=== PATIENT | female | born 1975 | race Caucasian/White ===

== ENCOUNTER 2019-02-18 14:37 | Emergency (ER) | payer OTHER, SELFPAY ==
--- NOTE | 2019-02-18 15:22 | EDPHYS ---
Physician Documentation [facility] Name: Liss Coles Age: 43 yrs Sex: Female : 1975 Arrival Date: 02/18/2019 Time: 14:41 Bed 14 Private MD: ED Physician Haresh Garg HPI: 02/18 15:20 This 43 yrs old Female presents to ER via Ambulatory with complaints of Fall pm1 Injury. 15:20 Details of fall: The patient fell from an upright position, while walking. Onset: The pm1 symptoms/episode began/occurred today. Associated injuries: The patient sustained right hamstring. Severity of symptoms: in the emergency department the symptoms are unchanged. The patient has not experienced similar symptoms in the past. The patient has not recently seen a physician. Patient was walking into a room at work and did not know that the floor was just mopped. Patient right leg slide forward and she did a split. Patient presenting with pain to right hamstring area. no head injury or headache. [employer]OR [employer]ING: 14:50 LMP N/A - Irregular menses rb1 Historical: - Allergies: 14:50 No Known Allergies; rb1 - Home Meds: 14:50 None [Active]; rb1 - PMHx: 14:50 None; rb1 - PSHx: 14:50 None; rb1 - Immunization history: Last tetanus immunization: < 10 years ago. - Social history:: Smoking status: Patient/guardian denies using tobacco. - Ebola Screening: : Patient negative for fever greater than or equal to 101.5 degrees Fahrenheit, and additional compatible Ebola Virus Disease symptoms. ROS: 15:20 Constitutional: Negative for fever, chills, and weight loss, Eyes: Negative for injury, pm1 pain, redness, and discharge, ENT: Negative for injury, pain, and discharge, Neck: Negative for injury, pain, and swelling, Cardiovascular: Negative for chest pain, palpitations, and edema, Respiratory: Negative for shortness of breath, cough, wheezing, and pleuritic chest pain, Abdomen/GI: Negative for abdominal pain, nausea, vomiting, diarrhea, and constipation, Back: Negative for injury and pain, : Negative for injury, bleeding, discharge, and swelling. 15:20 Skin: Negative for injury, rash, and discoloration, Neuro: Negative for headache, weakness, numbness, tingling, and seizure. 15:20 MS/extremity: Positive for pain, of the right hamstring, Negative for decreased range of motion, deformity. Exam: 15:20 Constitutional: This is a well developed, well nourished patient who is awake, alert, pm1 and in no acute distress. Head/Face: Normocephalic, atraumatic. Eyes: Pupils equal round and reactive to light, extra-ocular motions intact. Lids and lashes normal. Conjunctiva and sclera are non-icteric and not injected. Cornea within normal limits. Periorbital areas with no swelling, redness, or edema. ENT: Nares patent. No nasal discharge, no septal abnormalities noted. Tympanic membranes are normal and external auditory canals are clear. Oropharynx with no redness, swelling, or masses, exudates, or evidence of obstruction, uvula midline. Mucous membranes moist. Neck: Trachea midline, no thyromegaly or masses palpated, and no cervical lymphadenopathy. Supple, full range of motion without nuchal rigidity, or vertebral point tenderness. No Meningismus. Chest/axilla: Normal chest wall appearance and motion. Nontender with no deformity. No lesions are appreciated. Cardiovascular: Regular rate and rhythm with a normal S1 and S2. No gallops, murmurs, or rubs. Normal PMI, no JVD. No pulse deficits. Respiratory: Lungs have equal breath sounds bilaterally, clear to auscultation and percussion. No rales, rhonchi or wheezes noted. No increased work of breathing, no retractions or nasal flaring. Abdomen/GI: Soft, non-tender, with normal bowel sounds. No distension or tympany. No guarding or rebound. No evidence of tenderness throughout. Back: No spinal tenderness. No costovertebral tenderness. Full range of motion. Skin: Warm, dry with normal turgor. Normal color with no rashes, no lesions, and no evidence of cellulitis. 15:20 Musculoskeletal/extremity: Extremities: grossly normal except: noted in the right hamstring: tenderness, There is no evidence of decreased ROM, deformity, ROM: intact in all extremities, Circulation is intact in all extremities. Weight bearing: able to fully bear weight, without difficulty, Patient able to ambulate without any noticeable difficulty. 15:20 Neuro: Orientation: is normal, Motor: is normal, moves all fours. Vital Signs: 14:44 BP 139 / 86; Pulse 90; Resp 16; Temp 98.1; Pulse Ox 97% on R/A; Weight 121.56 kg; hb Height 5 ft. 7 in. (170.18 cm); 15:40 BP 136 / 85; Pulse 89; Resp 16; Temp 98.1(O); Pulse Ox 100% on R/A; Pain 5/10; rb1 14:44 Body Mass Index 41.97 (121.56 kg, 170.18 cm) hb Kelly Coma Score: 14:44 Eye Response: spontaneous(4). Verbal Response: oriented(5). Motor Response: obeys hb commands(6). Total: 15. Trauma Score (Adult): 14:44 Eye Response: spontaneous(1); Verbal Response: oriented(1); Motor Response: obeys hb commands(2); Systolic BP: > 89 mm Hg(4); Respiratory Rate: 10 to 29 per min(4); Kelly Score: 15; Trauma Score: 12 MDM: 14:52 Patient medically screened. pm1 15:20 Data reviewed: vital signs. Data interpreted: Pulse oximetry: on room air is 97 %. pm1 Interpretation: normal. Counseling: I had a detailed discussion with the patient and/or guardian regarding: the historical points, exam findings, and any diagnostic results supporting the discharge/admit diagnosis, the need for outpatient follow up, for definitive care, a orthopedic surgeon, to return to the emergency department if symptoms worsen or persist or if there are any questions or concerns that arise at home. Administered Medications: No medications were administered Disposition: 02/19 07:24 Co-signature as Attending Physician, Haresh Garg MD I agree with the assessment and sandeep plan of care. Disposition: 02/18/19 15:21 Discharged to Home. Impression: Strain of muscle, fascia and tendon of the posterior muscle group at thigh level, right thigh. - Condition is Stable. - Discharge Instructions: Hamstring Strain. - Prescriptions for Naprosyn 500 mg Oral Tablet - take 1 tablet by ORAL route 2 times per day take with food; 30 tablet. Cyclobenzaprine 10 mg Oral Tablet - take 1 tablet by ORAL route every 8 hours As needed; 30 tablet. Medrol (Oscar) 4 mg Oral Tablets, Dose Pack - take 1 tablet by ORAL route as directed - follow package instructions; 1 packet. - Work release form, Medication Reconciliation Form, Thank You Letter, Antibiotic Education, Prescription Opioid Use form. - Follow up: Emergency Department; When: As needed; Reason: Worsening of condition. Follow up: Private Physician; When: 2 - 3 days; Reason: Recheck today's complaints, Continuance of care, Re-evaluation by your physician. - Problem is new. - Symptoms have improved. Signatures: Haresh Garg MD MD cha Barber, Rebecca, RN RN [facility] Jc Grant NP [employer] pm1 Barbara Salmeron RN RN Corrections: (The following items were deleted from the chart) 02/18 15:59 15:21 02/18/2019 15:21 Discharged to Home. Impression: Strain of muscle, fascia and rb1 tendon of the posterior muscle group at thigh level, right thigh. Condition is Stable. Forms are Medication Reconciliation Form, Thank You Letter, Antibiotic Education, Prescription Opioid Use. Follow up: Emergency Department; When: As needed; Reason: Worsening of condition. Follow up: Private Physician; When: 2 - 3 days; Reason: Recheck today's complaints, Continuance of care, Re-evaluation by your physician. Problem is new. Symptoms have improved. pm1 22:25 15:20 Details of fall: The patient fell from an upright position, while walking, and pm1 struck a concrete surface, pm1 22:25 15:20 Onset: The symptoms/episode began/occurred just prior to arrival, pm1 pm1
--- NOTE | 2019-02-18 15:22 | ER ---
Nurse's Notes [facility] Name: Liss Coles Age: 43 yrs Sex: Female : 1975 Arrival Date: 02/18/2019 Time: 14:41 Bed 14 Private MD: Diagnosis: Strain of muscle, fascia and tendon of the posterior muscle group at thigh level, right thigh Presentation: 02/18 14:44 Presenting complaint: Patient states: Slip and fall at work "into the splits" today at hb 1300. Reports right hamstring pain. Ambulated with steady gait to triage. Care prior to arrival: None. Mechanism of Injury: Fall from standing position. Trauma event details: Injury occurred in the [facility], Injury occurred: in a public building. Injury occurred: February 18, 2019 Injury occurred at: 13:00. 14:44 Acuity: AB 4 hb 14:44 Method Of Arrival: Ambulatory hb 14:50 Transition of care: patient was not received from another setting of care. Onset of rb1 symptoms was February 18, 2019. Risk Assessment: Do you want to hurt yourself or someone else? Patient reports no desire to harm self or others. Initial Sepsis Screen: Does the patient meet any 2 criteria? No. Patient's initial sepsis screen is negative. Does the patient have a suspected source of infection? No. Patient's initial sepsis screen is negative. 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 - Social history:: Smoking status: Patient/guardian denies using tobacco. - Ebola Screening: : Patient negative for fever greater than or equal to 101.5 degrees Fahrenheit, and additional compatible Ebola Virus Disease symptoms. Screenin:50 Abuse screen: Denies threats or abuse. Nutritional screening: No deficits noted. rb1 Tuberculosis screening: No symptoms or risk factors identified. Fall Risk Fall in past 12 months (25 points). No secondary diagnosis (0 pts). No IV (0 pts). Ambulatory Aid- None/Bed Rest/Nurse Assist (0 pts). Gait- Normal/Bed Rest/Wheelchair (0 pts) Mental Status- Oriented to own ability (0 pts). Total [place] Fall Scale indicates Low Risk Score (25-44 pts). Fall prevention measures have been instituted. Side Rails Up X 2 Placed close to Nursing Station 1:1 attendant Assigned to Pt. Frequent Obs/Assesments occuring As available Patient and Family Educated on Fall Prevention Program and strategies. Assessment: 14:44 General: Appears in no apparent distress. comfortable, Behavior is calm, cooperative, hb appropriate for age. Pain: Complains of pain in right hamstring. Respiratory: Airway is patent Respiratory effort is even, unlabored, Respiratory pattern is regular, symmetrical. Derm: Skin is intact, is healthy with good turgor, Skin is pink, warm \\T\\ dry. normal. Musculoskeletal: Reports pain in right hamstring. 14:50 General: Appears in no apparent distress. comfortable, Behavior is calm, cooperative. rb1 Pain: Complains of pain in right hamstring Pain currently is 6 out of 10 on a pain scale. Neuro: Level of Consciousness is awake, alert, obeys commands, Oriented to person, place, time, situation. Cardiovascular: Capillary refill < 3 seconds is brisk in bilateral fingers. Respiratory: Airway is patent Respiratory effort is even, unlabored, Respiratory pattern is regular, symmetrical. GI: No signs and/or symptoms were reported involving the gastrointestinal system. : No signs and/or symptoms were reported regarding the genitourinary system. Derm: Skin is pink, warm \\T\\ dry. Musculoskeletal: Range of motion: intact in all extremities. 15:50 Reassessment: Patient appears in no apparent distress at this time. No changes from rb1 previously documented assessment. Vital Signs: 14:44 BP 139 / 86; Pulse 90; Resp 16; Temp 98.1; Pulse Ox 97% on R/A; Weight 121.56 kg; hb Height 5 ft. 7 in. (170.18 cm); 15:40 BP 136 / 85; Pulse 89; Resp 16; Temp 98.1(O); Pulse Ox 100% on R/A; Pain 5/10; rb1 14:44 Body Mass Index 41.97 (121.56 kg, 170.18 cm) hb [place] Coma Score: 14:44 Eye Response: spontaneous(4). Verbal Response: oriented(5). Motor Response: obeys hb commands(6). Total: 15. Trauma Score (Adult): 14:44 Eye Response: spontaneous(1); Verbal Response: oriented(1); Motor Response: obeys hb commands(2); Systolic BP: > 89 mm Hg(4); Respiratory Rate: 10 to 29 per min(4); [place] Score: 15; Trauma Score: 12 ED Course: 14:41 Patient arrived in ED. ds1 14:45 Triage completed. hb 14:50 Patient has correct armband on for positive identification. Bed in low position. Call rb1 light in reach. Side rails up X 1. Pulse ox on. NIBP on. 14:50 Arm band placed on right wrist. rb1 14:52 Jc Grant NP is PHCP. pm1 14:52 Haresh Garg MD is Attending Physician. pm1 14:56 Blanca Randolph, CECY is Primary Nurse. rb1 15:50 No provider procedures requiring assistance completed. Patient did not have IV access rb1 during this emergency room visit. Administered Medications: No medications were administered Outcome: 15:21 Discharge ordered by MD. pm1 15:59 Patient left the ED. rb1 15:59 Discharged to home ambulatory. rb1 15:59 Condition: stable 15:59 Discharge instructions given to patient, Instructed on discharge instructions, follow up and referral plans. medication usage, Demonstrated understanding of instructions, follow-up care, medications, Prescriptions given X 3. Signatures: Anuja Sethi ds1 Blanca Randolph, CECY RN rb1 Jc Grant NP [employer]OTE[employer] pm1 Barbara Salmeron RN RN hb
== END 2019-02-18 15:59 | disposition home or self-care (01) ==
LOC: ER 14:37
DX: S76.311A Strain of muscle, fascia and tendon of the posterior muscle group at thigh level, right thigh, initial encounter (principal); W01.0XXA Fall on same level from slipping, tripping and stumbling without subsequent striking against object, initial encounter; Y93.01 Activity, walking, marching and hiking
CPT/HCPCS: 99283